=== PATIENT | male | born 1975 | race Caucasian/White ===

== ENCOUNTER 2017-02-17 12:37 | Observation (INO) ==
--- NOTE | 2017-02-17 13:30 | PROVIDER DOCUMENTATION ---
HPI-Neurological Disorder - General Chief Complaint: Syncope Stated Complaint: stroke like sx Time Seen by Provider: 02/17/17 12:42 Source: patient, other (Dr Cassidy) Allergies/Adverse Reactions: Patient Allergies Allergy/AdvReac Type Severity Reaction Status Date / Time No Known Allergies Allergy Verified 02/17/17 14:40 Home Medications: Home Medication List Medication Instructions Recorded Confirmed Last Taken Type ATORVAstatin [Lipitor] 40 mg PO QHS 02/17/17 02/17/17 1 Day Ago History Amlodipine [Norvasc] 10 mg PO DAILY 02/17/17 02/17/17 02/17/17 History Aspirin 325 mg PO DAILY 02/17/17 02/17/17 02/17/17 History Citalopram [Celexa] 40 mg PO DAILY 02/17/17 02/17/17 02/17/17 History Hydrocodone/Acetaminophen 1 tab PO BID PRN 02/17/17 02/17/17 02/17/17 History [Hydrocodon-Acetaminoph 7.5-325] Levothyroxine [Synthroid] 75 microgm PO DAILY 02/17/17 02/17/17 02/17/17 History - History of Present Illness-Neuro Nature of Presenting Problem: 41 yo WM 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 He had left sided symptoms t that time but no aphasia or dysphagia. He recovered enough to return to work. Today he was in [place] [employer] and became totally unrespssive with his eyes "rolled back " in his head but became fully alert when placed flat in bed. He was unmonitored but during the spell but was in a NSR after the spell. He is full alert but reports profound weakness in both legs. CT upon arrival here is without blood but obvious old rt cerebellar infarct near the midbrain. I spoke with of closure of the PFODr John who reports that has a PFO and has been referred to Dr Cassidy for Holter monitoring and consideration Headache Location: reports: temporal Severity: reports: mild Onset/Duration: reports: just prior to arrival Timing: reports: improving (see HPI) Approximate time patient was last seen normal?: 11:00 Character of Altered Mental Status: reports: N/A Any recent trauma/injury?: reports: other (see HPI) Character of Deficits: reports: new weakness New weakness or altered sensation location:: reports: RLE, LUE Gait Baseline: stands for transfers Associated Symptoms: reports: decreased ability to walk or stand - Seizure Witnessed seizure?: No Review of Systems - Adult - REVIEW OF SYSTEMS - ADULT Constitutional: reports: no symptoms reported Eyes: reports: no symptoms reported Ears, Nose, Mouth & Throat: reports: no symptoms reported Cardiovascular: reports: see HPI Respiratory: reports: no symptoms reported Gastrointestinal: reports: no symptoms reported Genitourinary: reports: no symptoms reported Musculoskeletal: reports: no symptoms reported Integumentary: reports: no symptoms reported Neurological: reports: no symptoms reported Psychiatric: reports: no symptoms reported Endocrine: reports: no symptoms reported Hematologic/Lymphatic: reports: no symptoms reported Allergic/Immunologic: reports: no symptoms reported Past History - Adult - PAST MEDICAL HISTORY-ADULT Review of Records: reports: Nursing Assessment Review, Medications Reviewed Major Childhood Illnesses: reports: denies history Cardiovascular: reports: hyperlipidemia Respiratory: reports: denies history Gastrointestinal: reports: denies history Genitourinary: reports: denies history Musculoskeletal: reports: arthritis, other (gout) Hand Dominance: Right Handed Neurological: reports: CVA Psychiatric: reports: denies history Endocrine/Immune: reports: thyroid disorder Physical Exam- Neurological - Physical Exam-Neuro Initial Vital Signs Reviewed: Yes General Appearance: appears well, alert, no apparent distress Eye Exam: bilateral eye: normal inspection, PERRL, EOMI HENMT: normocephalic/atraumatic, moist mucous membranes, normal ENT inspection Head Injury: no evidence of injury Neck: non-tender, full range of motion, supple Respiratory: chest non-tender, lungs clear, normal breath sounds Cardiovascular: regular rate, rhythm, no edema, no gallop, no JVD Abdominal Exam: normal bowel sounds, non tender, soft, no organomegaly, no pulsatile mass Lymphatic: no adenopathy Peripheral Pulses: radial (R): 3+, radial (L): 3+ Extremity: normal inspection, no pedal edema, no calf tenderness, normal capillary refill. negative: normal gait vacuum tester cans Exam: normal hearing, normal speech, PERRL, other (profound lower extremity weakness). negative: abnormal speech, facial asymmetry, facial droop, facial paresthesias Integumentary: normal color, normal turgor, warm/dry Psych/Mental Status: normal mood/affect - Glascow Coma Scale Total Glascow Score: 15 Progress - PLAN OF CARE/RESULTS Progress/Plan/Lab Results: Vital Signs - 8 hr 02/17/17 13:29 02/17/17 15:33 02/17/17 16:29 Temperature 97.6 F 98 F Pulse Rate 81 71 74 Respiratory Rate 19 16 16 Blood Pressure 113/82 140/99 137/98 O2 Sat by Pulse Oximetry 100 100 100 02/17/17 17:28 Temperature Pulse Rate 68 Respiratory Rate 13 Blood Pressure 128/90 O2 Sat by Pulse Oximetry 100 Laboratory Results - last 24 hr 02/17/17 02/17/17 02/17/17 13:47 16:07 16:07 WBC 11.05 H RBC 4.30 L Hgb 13.8 L Hct 40.1 L MCV 93.3 MCH 32.1 H MCHC 34.4 RDW Std Deviation 13.3 Plt Count 302 MPV 9.6 Immature Gran % (Auto) 0.3 Neut % (Auto) 85.5 H Lymph % (Auto) 9.9 L Schley % (Auto) 3.6 Eos % (Auto) 0.5 Baso % (Auto) 0.2 Immature Gran # (Auto) 0.03 Neut # (Auto) 9.45 H Lymph # (Auto) 1.09 L Schley # (Auto) 0.40 Eos # (Auto) 0.06 Baso # (Auto) 0.02 PT INR PTT (Actin FS) Specimen Type VENOUS Sample Site L RADIAL pH 7.43 pCO2 45 HCO3 27.7 H Base Excess 4.8 H ABG O2 Sat (Calculated) 11.9 L ABG Carboxyhemoglobin 2.50 ABG Methemoglobin 1.1 King Test YES A-a O2 Difference 114.0 Total Hemoglobin 13.5 Lactate 2.40 H Liter Flow 2.0 Blood Gas Modality CANNULA FiO2 % 28.0 Sodium Potassium Chloride Carbon Dioxide Anion Gap BUN Creatinine Estimated GFR/1.73 m2 BUN/Creatinine Ratio Glucose Calculated Osmolality Calcium Total Bilirubin AST ALT Alkaline Phosphatase Creatine Kinase Troponin T Total Protein Albumin Globulin Albumin/Globulin Ratio Plasma Lactate Plasma/Serum Ethyl Alc 02/17/17 02/17/17 02/17/17 16:07 16:07 16:07 WBC RBC Hgb Hct MCV MCH MCHC RDW Std Deviation Plt Count MPV Immature Gran % (Auto) Neut % (Auto) Lymph % (Auto) Schley % (Auto) Eos % (Auto) Baso % (Auto) Immature Gran # (Auto) Neut # (Auto) Lymph # (Auto) Schley # (Auto) Eos # (Auto) Baso # (Auto) PT 10.5 INR 1.00 PTT (Actin FS) 26.3 Specimen Type Sample Site pH pCO2 HCO3 Base Excess ABG O2 Sat (Calculated) ABG Carboxyhemoglobin ABG Methemoglobin King Test A-a O2 Difference Total Hemoglobin Lactate Liter Flow Blood Gas Modality FiO2 % Sodium 141 Potassium 4.2 Chloride 100 Carbon Dioxide 28 Anion Gap 13 BUN 8 Creatinine 0.9 Estimated GFR/1.73 m2 > 60 BUN/Creatinine Ratio 9 Glucose 82 Calculated Osmolality 279 Calcium 9.6 Total Bilirubin 0.51 AST 28 ALT 25 Alkaline Phosphatase 65 Creatine Kinase 57 Troponin T Total Protein 7.8 Albumin 4.4 Globulin 3.4 Albumin/Globulin Ratio 1.3 Plasma Lactate 1.4 Plasma/Serum Ethyl Alc 02/17/17 16:07 WBC RBC Hgb Hct MCV MCH MCHC RDW Std Deviation Plt Count MPV Immature Gran % (Auto) Neut % (Auto) Lymph % (Auto) Schley % (Auto) Eos % (Auto) Baso % (Auto) Immature Gran # (Auto) Neut # (Auto) Lymph # (Auto) Schley # (Auto) Eos # (Auto) Baso # (Auto) PT INR PTT (Actin FS) Specimen Type Sample Site pH pCO2 HCO3 Base Excess ABG O2 Sat (Calculated) ABG Carboxyhemoglobin ABG Methemoglobin King Test A-a O2 Difference Total Hemoglobin Lactate Liter Flow Blood Gas Modality FiO2 % Sodium Potassium Chloride Carbon Dioxide Anion Gap BUN Creatinine Estimated GFR/1.73 m2 BUN/Creatinine Ratio Glucose Calculated Osmolality Calcium Total Bilirubin AST ALT Alkaline Phosphatase Creatine Kinase Troponin T < 0.010 Total Protein Albumin Globulin Albumin/Globulin Ratio Plasma Lactate Plasma/Serum Ethyl Alc Orders Category Date Time Status Cardiac Monitoring DIRECTED Care 02/17/17 12:42 Active Finger Stick Blood Sugar (ED) DIRECTED Care 02/17/17 12:42 Active Oxygen Therapy- ED Nursing DIRECTED Care 02/17/17 12:42 Active Saline Loc NOW Care 02/17/17 12:42 Active CHEST-PORTABLE [RAD] Stat Exams 02/17/17 12:42 Completed HEAD W/O CONTRAST [CT] Stat Exams 02/17/17 12:41 Completed ABG [RESP] Routine Lab 02/17/17 13:47 Completed ALCOHOL BLOOD Stat Lab 02/17/17 16:07 Completed CBC WITH ELECTRONIC DIFF [HEME] Stat Lab 02/17/17 16:07 Completed CK PROFILE [SP CHEM] Stat Lab 02/17/17 16:07 Completed COMPREHENSIVE METABOLIC PANEL [CHEM] Stat Lab 02/17/17 16:07 Completed LACTATE, PLASMA [CHEM] Stat Lab 02/17/17 16:07 Completed PROTIME WITH INR [COAG] Stat Lab 02/17/17 16:07 Completed PTT [COAG] Stat Lab 02/17/17 16:07 Completed TROPONIN T Stat Lab 02/17/17 16:07 Completed URINALYSIS W/POSS RFLX CULT-1 [URINALYSIS] Stat Lab 02/17/17 12:42 Uncollected URINE DRUG SCREEN Stat Lab 02/17/17 12:42 Uncollected Pulse Oximetry Stat Oth 02/17/17 12:42 Active EKG [EKG] Stat Ther 02/17/17 12:42 Ordered Result Diagrams: 02/17/17 16:07 02/17/17 16:07 - REASSESSMENT Reassessment #1 Time Reassessed: 17:25 Status: improving Reassessment Comment: Now able to move both legs and wiggle toes but still weak. Discussed with - CT/MRI 1 CT Study: Head Impression: Abnormal CT Results: Old cerebellar stroke - CONSULTS/PCP/HOSPITALIST Notification #1 *Consult/PCP/Hospitalist*: Dr Bailey Time Discussed: 17:20 Reason/Comments: Agrees to admit Departure - Departure Time of Disposition Decision: 17:46 DIAGNOSIS: Syncope Disposition: HOME 01 Certified Medical Emergency: Emergent Condition: Good Referrals and Follow-Ups: None,PCP [Primary Care Provider] - - Critical Care Note This patient required my direct personal management.: Yes Total Time (mins): 30 Critical Care Statement: This patient required my direct personal management to treat or rule out processes, the absence of which, could potentiallly result in sudden, clinically significant life or limb threatening deterioration.
[2017-02-17 13:57] LABS: ALLEN TEST YES; BE 4.8 mmoll (-3.0-3.0); DRAW SITE L RADIAL; METHB 1.1 % (0.0-1.5); O2(CT) 11.9 mL/dL (15.0-23.0); PCO2(98.6) 45 mmHg (35-45); SAMPLE BLOOD; THB 13.5 g/dL (11.5-17.4); pH(98.6) 7.43 (7.35-7.45)
[2017-02-17 13:59] LABS: BLOOD TYPE VENOUS; MODALITY CANNULA
--- NOTE | 2017-02-17 14:10 | Diag Imaging Result Document ---
PROCEDURE NAME: HEAD W/O CONTRAST - 02/17/2017 CT BRAIN WITHOUT: TECHNIQUE: Dose reduction protocol. FINDINGS: No parenchymal hemorrhage. No epidural or subdural hematoma. No subarachnoid hemorrhage. No mass identified on this noncontrasted exam. Hypodense area in the right cerebellum. No other abnormality. No sinus opacification. IMPRESSION: 1. No hemorrhage. 2. Prior right cerebellar infarct. A preliminary report was given at 1:08 p.m. -2
--- NOTE | 2017-02-17 15:06 | Diag Imaging Result Document ---
PROCEDURE NAME: CHEST-PORTABLE - 02/17/2017 PORTABLE CHEST: FINDINGS: The lungs are well expanded. The heart is not enlarged. The vessels are not distended. No pneumonia. No pleural effusions identified. IMPRESSION: Negative chest.
[2017-02-17 16:30] LABS: BASO% 0.2 % (0.0-0.8); EOS# 0.06 X1000 (0.0-0.7); EOS% 0.5 % (0.0-10.0); HEMATOCRIT 40.1 % (42.0-52.0); HEMOGLOBIN 13.8 g/dL (14.0-18.0); IMM GRAN# 0.03 X1000 (0.0-0.04); IMM GRAN% 0.3 % (0.0-0.5); LYMPH# 1.09 X1000 (1.2-3.4); LYMPH% 9.9 % (20.5-51.1); MANUAL DIFF NEEDED? NO; MCH 32.1 PG (27-31); MCHC 34.4 g/dL (33-37); MCV 93.3 FL (81-99); MONO% 3.6 % (1.7-9.3); MPV 9.6 FL (7.4-10.4); NEUT% 85.5 % (42.2-75.2); PLT 302 X1000 (130-400)
[2017-02-17 16:38] LABS: AGAP 13; ALBUMIN 4.4 g/dL (3.5-5.0); ALKALINE PHOSPHATASE 65 U/L (32-122); BUN 8 mg/dL (8-22); CALCIUM 9.6 mg/dL (8.8-10.2); CHLORIDE 100 mmol/L (98-107); CK PROFILE 57 U/L (24-204); COSMO 279; GOT 28 U/L (10-34); GPT 25 U/L (10-44); POTASSIUM 4.2 mmol/L (3.5-5.1); SODIUM 141 mmol/L (136-145); TCO2 28 mmol/L (25-35); TOTAL BILIRUBIN 0.51 mg/dL (0.20-1.00); TOTAL PROTEIN 7.8 g/dL (6.3-8.3)
[2017-02-17 16:52] LABS: PROTIME 10.5 Seconds (9.2-11.7); PTT 26.3 Seconds (22.0-36.0)
[2017-02-17] MEDS ORDERED: ZOFRAN IV PRN (18:57)
[2017-02-17] MEDS: LOVENOX SUBQ SCH (19:00)
--- NOTE | 2017-02-17 19:47 | HISTORY AND PHYSICAL ---
PRESENTING COMPLAINT: Blackout. HISTORY OF PRESENT COMPLAINT: Mr. Jones is a 41-year-old, male who was recently discharged from [facility] about a month ago due to severe cerebellar infarct. The patient on that occasional referred to have blacked out. He did have some slurred speech and had also projectile vomiting and headaches. An MRI confirmed cerebellar infarct and thus a JOHN with bubble study did confirm a PFO. Patient was admitted for 6 days and discharged home with outpatient rehabilitation. The patient referred that he has been doing remarkably fine. He went to see Dr. Niranjan Cassidy today for assessment for a Holter monitor or some form of cardiac monitoring to make sure he does not have underlying arrhythmias. However while in Dr. Cassidy's office he was sitting up on the examination table and he just passed out without any premonition symptoms. When he woke up he was on the bed and apparently somebody was pumping on his chest, unsure if he lost pulse and were giving him CPR. Patient refers that prior to passing out he just felt dazed out and his realized that he was not responding very well, that his speech also got slurred, and then he just passed out. He did not pass out for long maybe about a minute or less. There was no jerking seizure-like activity. Patient presented to the emergency department. At the time he was not able to move his both lower extremities. At the time of his examination he was doing fine. PAST MEDICAL HISTORY: 1. Recent CVA in the cerebellum. 2. Hypertension. FAMILY HISTORY: Positive for diabetes. SOCIAL HISTORY: Patient denies any tobacco use, alcohol or any recreational drugs. Patient is and lives in [place] with the . He owns a business. ALLERGIES: No known drug allergies. PAST SURGICAL HISTORY: None. REVIEW OF SYSTEMS: Fourteen point review of systems conducted with the patient. None except for what we have in the HPI. Specifically patient denies any chest pain or shortness of breath. No headaches. No diarrhea. No abdominal pain. PHYSICAL EXAMINATION: VITAL SIGNS: Blood pressure is 134/94, pulse 78, respirations 12, temperature 98 degrees, patient is saturating 100% on room air. GENERAL EXAMINATION: Mr. Jones is a 41-year-old, male. He is in bed, in no distress. HEENT: Mucosa is pink and moist. Anicteric. Acyanotic. NECK: Supple. No JVD. No carotid bruit. HEAD: Normocephalic and atraumatic. CHEST: Good air entry bilateral. No crepitations. No rhonchi. No accessory muscle use. CARDIOVASCULAR: Regular rate and rhythm. There are no murmurs, no rubs, no gallops. ABDOMEN: Soft, nontender. There are no scars on the abdominal wall. No hepatosplenomegaly. EXTREMITIES: No pedal edema. No cyanosis. Distal pulses are present and they are normal. CENTRAL NERVOUS SYSTEM: Patient is alert. He is alert and oriented x4. Executive functions are completely normal. Cranial nerves 2-12 have been grossly examined and unremarkable. Sensation is intact. Patient has about 4+ of power on the left side. This is consistent with a previous stroke. The right side power is 5/5. I did not appreciate any sensation deficit. The reflexes are 2+. There is no Babinski. LABORATORY DATA: WBC is 11.05, hemoglobin is 13.8, platelet count of 302,000. Chemistries reviewed. Sodium 141, potassium 4.3, chloride is 100, bicarbonate is 28, creatinine is 0.9. Troponins have been normal. ASSESSMENT AND PLAN: Mr. Jones is a 41-year-old, male who recently was diagnosed with a cerebellar stroke, also JOHN confirming PFO, who presented to Dr. Cassidy's office for a cardiac evaluation and had a syncopal episode. 1. Syncope likely related to cardiac event. The patient will need to be on telemetry monitoring while he is in the hospital. If no event is reported, I think he would benefit from prolonged outpatient cardiac monitoring. We will consult Dr. Cassidy to evaluate the patient while he is in the hospital. 2. Suspected transient ischemic attack. The patient did have some slurred speech and I was told some difficulty moving the lower extremities. It would be rare for a stroke to present with both lower extremities. However the patient has documented PFO from [place] and he always has a risk of paradoxical emboli to the brain. We will therefore admit him, observe him neurologically and do an MRI of the brain. 3. Hypertension is controlled for now. We will be liberal with blood pressure numbers. 4. Hypothyroidism. We will start the patient on his home medications. 5. In general, Mr. Jones is relatively fine. We will going to admit him to the medical floor with telemetry monitoring. We will consult Cardiology. We will also start the patient on aspirin statin. Add Plavix as a recommendation from Dr. Lopez, the neurologist it communications manager in [place] who Dr. Little spoke with today. 6. We will give further recommendations during the hospital course. cc: James Bailey MD
[2017-02-17] MEDS: NS 1,000 ML IV SCH (20:21)
[2017-02-17] MEDS: LIPITOR PO SCH (23:10)
[2017-02-17] MEDS: PLAVIX PO SCH (23:10)
[2017-02-18 05:30] LABS: URINE CULTURE NEEDED? NO; URINE MICRO REVIEW NEEDED? NO; URINE SOURCE CLEAN CATCH
[2017-02-18 05:33] LABS: BILIRUBIN URINE NEGATIVE (NEGATIVE); BLOOD URINE NEGATIVE (NEGATIVE); COLOR YELLOW; GLUCOSE URINE NEGATIVE (NEGATIVE); LEUKOCYTES URINE NEGATIVE (NEGATIVE); NITRITE URINE NEGATIVE (NEGATIVE); PH URINE 6.5; PROTEIN URINE NEGATIVE (NEGATIVE); SP GRAVITY URINE 1.012; TURBIDITY URINE CLEAR (CLEAR); UROBILINOGEN URINE NORMAL (NORMAL)
[2017-02-18 05:35] LABS: UR EPITHELIAL CELLS <10 /HPF (<10); URINE BACTERIA NEGATIVE /HPF; URINE RBC <10 /HPF (<10); URINE WBC <10 /HPF (<10)
[2017-02-18 05:47] LABS: UR AMPHETAMINES QUAL NONE DETECTED (NONE DETECT); UR BARBITUATES QUAL NONE DETECTED (NONE DETECT); UR BENZODIAZEPIN QUAL NONE DETECTED (NONE DETECT); UR CANNABINOIDS QUAL PRESUMPTIVE POSITIVE (NONE DETECT); UR COCAINE QUAL NONE DETECTED (NONE DETECT); UR METHADONE QUAL NONE DETECTED (NONE DETECT); UR OPIATES QUAL PRESUMPTIVE POSITIVE (NONE DETECT); UR OXYCODONE QUAL NONE DETECTED (NONE DETECT); UR PCP QUAL NONE DETECTED (NONE DETECT)
[2017-02-18] MEDS: NS 1,000 ML IV SCH ×3 (07:31→21:08)
[2017-02-18] MEDS: PLAVIX PO SCH (08:48)
[2017-02-18] MEDS: CELEXA PO SCH (08:48)
[2017-02-18] MEDS: SYNTHROID PO SCH (08:48)
[2017-02-18] MEDS: ASPIRIN PO SCH (08:48)
[2017-02-18 12:28] LABS: MANUAL DIFF NEEDED? NO
[2017-02-18 12:47] LABS: INR 1.01; PROTIME 10.6 Seconds (9.2-11.7)
[2017-02-18 12:56] LABS: AGAP 15; ALBUMIN 3.9 g/dL (3.5-5.0); ALKALINE PHOSPHATASE 60 U/L (32-122); BUN 9 mg/dL (8-22); CALCIUM 9.1 mg/dL (8.8-10.2); CHLORIDE 100 mmol/L (98-107); COSMO 272; GOT 27 U/L (10-34); GPT 24 U/L (10-44); MAGNESIUM 1.9 mg/dL (1.5-2.7); POTASSIUM 4.2 mmol/L (3.5-5.1); SODIUM 137 mmol/L (136-145); TCO2 22 mmol/L (25-35); TOTAL BILIRUBIN 0.63 mg/dL (0.20-1.00); TOTAL PROTEIN 7.7 g/dL (6.3-8.3)
[2017-02-18 13:04] LABS: BASO% 0.3 % (0.0-0.8); EOS# 0.22 X1000 (0.0-0.7); EOS% 3.5 % (0.0-10.0); HEMATOCRIT 38.8 % (42.0-52.0); HEMOGLOBIN 13.8 g/dL (14.0-18.0); LYMPH# 1.91 X1000 (1.2-3.4); LYMPH% 30.1 % (20.5-51.1); MCH 33.3 PG (27-31); MCHC 35.6 g/dL (33-37); MCV 93.5 FL (81-99); MONO# 0.63 X1000 (0.11-0.59); MONO% 9.9 % (1.7-9.3); NEUT% 56.2 % (42.2-75.2); PLT 295 X1000 (130-400); RBC 4.15 XMIL (4.7-6.1)
[2017-02-18] MEDS: COLCRYS PO SCH ×2 (13:22→20:23)
--- NOTE | 2017-02-18 13:40 | PROGRESS NOTE ---
DATE: 02/18/2017 Today Mr. Jones referred to be doing fine. He does complain of a right elbow pain which goes all the way to the arm but no burning and no sensation deficit. OBJECTIVE: Vital signs: Blood pressure is 116/74, pulse of 52, respirations 18, temperature 98.1 degrees. General: Mr. Jones is a 41-year-old male. He is in bed, in no distress. HEENT: Mucosa is pink and moist. Anicteric. Acyanotic. Neck: Supple. Chest: Clear. Cardiovascular: Regular rate and rhythm. Abdomen: Soft, nontender. Extremities: No pedal edema. INPATIENT CARE MANAGER RN: Patient is alert, oriented x4. There is a mild left side weakness which is from a previous stroke. Patient has no sensation deficit. Musculoskeletal: Right upper extremity is tender on manipulating the elbow joint. There is no effusion, no swelling but I think it is just hurting. ASSESSMENT: 1. Syncope. Etiology is unclear. We think is related to cardiac. 2. Suspected TIA. Patient is pending an MRI and MRA for brain ischemic workup. 3. Hypertension, stable. 4. Hypothyroidism, stable. 5. Left elbow monoarthritis. I think this is related to gout flare. I will put the patient on Colchicine for now and uric acid levels have already been ordered. Will follow up on that. 6. We are pending MRA of the brain and the C-spine. We also are pending the MRI for further stratification of the patient's neurological risks. cc: James Bailey MD
[2017-02-18] MEDS: NORCO-7.5 PO PRN (17:46)
[2017-02-18] MEDS: LOVENOX SUBQ SCH (19:08)
[2017-02-18] MEDS: LIPITOR PO SCH (20:23)
[2017-02-19] MEDS: PROTONIX PO SCH (06:09)
[2017-02-19] MEDS: NORCO-7.5 PO PRN ×2 (08:27→16:56)
[2017-02-19] MEDS: SYNTHROID PO SCH (08:28)
[2017-02-19] MEDS: CELEXA PO SCH (08:28)
[2017-02-19] MEDS: PLAVIX PO SCH (08:28)
[2017-02-19] MEDS: COLCRYS PO SCH ×2 (08:28→22:02)
[2017-02-19] MEDS: ASPIRIN PO SCH (08:28)
[2017-02-19] MEDS: NS 1,000 ML IV SCH (10:18)
--- NOTE | 2017-02-19 12:15 | PROGRESS NOTE ---
DATE: 02/19/2017 CHIEF COMPLAINT: Weakness and pain of right upper extremity, dizziness, syncope. SUBJECTIVE: Mr. Jones felt somewhat dizzy with a vertigo like sensation when getting back from the bathroom. He denies having chest pains. He still has pain in the right arm at the level of the triceps and biceps on the right side when stretching the arm. He definitely has weakness in the right upper extremity. OBJECTIVE: Blood pressure is 114/75, temperature 97.7, pulse 68, respirations 17. He is awake, alert and oriented, in no distress. HEENT is unremarkable. Chest: Clear to auscultation and percussion. Heart sounds regular and rhythmic. No gallop or murmur. Abdomen: Nontender. Extremities: No edema. Neurologic: Moves all 4 extremities. DIAGNOSTIC DATA: Blood work from yesterday showed uric acid of 8.0 which is elevated. C-reactive protein was normal. Pro BNP was normal. Carcinoembryonic antigen was 1.8 which is normal. Sedimentation rate was also minimally elevated at 16. White count is 6340, hemoglobin 13.8. IMPRESSION: 1. The patient has unusual combination of weakness and pain in the right upper extremity preceded by neck pain on the right side a few weeks ago followed by a stroke in the right cerebellar hemisphere. 2. Patent foramen ovale noted by recent transesophageal echocardiogram. 3. Syncopal episode. 4. History of gout. RECOMMENDATIONS: At this point in time, we have requested an MRI of the cervical spine and an MRA of the vertebral and posterior circulation of the brain. Further advice will be forthcoming. He has been started on colchicine for gout. We will see what the studies show. Thank you for the opportunity to participate in his evaluation. cc: Hector Coker MD [facility]
--- NOTE | 2017-02-19 14:11 | PROGRESS NOTE ---
DATE: 02/19/2017 SUBJECTIVE: Today Mr. Jones refers to be doing a whole lot better. The right elbow pain is improving. OBJECTIVE: Vital signs: Blood pressure is 114/75, pulse of 60, respirations 17, temperature is 97.9 degrees. General: Mr. Jones is a 51-year-old male. He is in bed, no seemingly distress. HEENT: Mucosa is pink and moist. Anicteric. Acyanotic. Neck: Supple. Chest: Clear. Cardiovascular: Regular rate and rhythm. There are no murmurs, no rubs, no gallops. Abdomen: Soft, nontender. Extremities: No pedal edema. [employer]: Patient is alert and oriented x4. Musculoskeletal: There is mild tenderness, immobilization of right elbow but it is a whole lot better than yesterday. ASSESSMENT: 1. Syncope, etiology unclear. I think this is more related with some cardiac abnormalities. We are still pending Cardiology evaluation for possible event recorder insertion. 2. Suspected transient ischemic attack. We pending MRI and MRA of the brain and the neck tomorrow. 3. Hypertension, stable. 4. Hypothyroidism. We will continue with the supplement. 5. Right elbow monoarthralgia. I think this is due to gout flare. Uric acid is a little bit high. We started the patient on colchicine. We did not do NSAIDs because is on dual anti- platelet therapy. We do not want to provoke any GI bleed. PLAN: In general, I think Mr. Jones is doing better. Will continue with the current plan. MRI and MRA pending. Once that is done, we will plan the patient's discharge soon. cc: James Bailey MD
[2017-02-19] MEDS: LOVENOX SUBQ SCH (18:16)
[2017-02-19] MEDS: LIPITOR PO SCH (22:02)
[2017-02-20] MEDS: NS 1,000 ML IV SCH ×3 (03:36→20:44)
[2017-02-20] MEDS: PROTONIX PO SCH (06:58)
--- NOTE | 2017-02-20 07:12 | EKG Report ---
Test Performed on : 02/17/2017 2:56:42 PM Test Reason : AMS Blood Pressure : / mmHG Vent. Rate : 074 BPM Atrial Rate : 074 BPM P-R Int : 150 ms QRS Dur : 104 ms QT Int : 400 ms P-R-T Axes : 047 003 025 degrees QTc Int : 444 ms Sinus rhythm. with sinus arrhythmia. with occasional premature ventricular complexes. Otherwise normal ECG No previous ECGs available Unconfirmed Result
--- NOTE | 2017-02-20 07:23 | CONSULTATION ---
DATE OF CONSULTATION: 02/18/2017 CHIEF COMPLAINT: Loss of consciousness, diaphoresis. HISTORY: Sia[age]ytne[age]ld-old male presented to Dr. Niranjan Cassidy's office yesterday at somewhere around 11 o'clock in the morning. The patient went in for a cardiology opinion regarding recent finding of a patent foramen ovale. While he was at the office, the patient developed a sensation of falling to the left side, broke out in a profuse sweat, and lost consciousness for a relatively short period of time. Within a minute or two, he was back to his normal senses. He said that for the ensuing three hours after the loss of consciousness, he could not control his legs. Both of them were very stiff. Then he was brought to the hospital where they did a CT scan of the head and revealed the presence of an old right cerebellar infarct. They did blood work that showed white count of 11,000, hemoglobin 13.8, platelet count 302,000, PT/INR normal. Blood gases showed normal pH of 7.43. PO2 is not reported. PCO2 was 45. Sodium 141, potassium 4.2, BUN 8, creatinine 0.9. Troponin was 0.010. EKG done in the Emergency Room showed sinus rhythm with sinus arrhythmia, PVCs. No ischemic changes. Patient has been admitted to the hospital for observation. Overnight, the patient states that his right arm has become weaker. He cannot fully stretch the right arm. He cannot fully raise it above the head because it hurts. He feels that his right plug sorter is somewhat weaker than the left. He is right- handed. Denies having chest pain. Denies shortness of breath. However, he said that for the past few days prior to coming to the hospital to see Dr. Cassidy, he had noted some increasing exertional dyspnea, and that bothered him somehow. PAST HISTORY: His past history is positive for hypertension. He has history of spinal stenosis. He has hyperlipidemia. He suffered an episode of loss of consciousness associated with projective vomiting and falling also to the left side around 01/18 or 01/19. He was taken to [facility], where they did a CT of the head that showed an acute infarct in the right cerebellum. MRI of the brain 01/21 showed a large territory right posterior internal communicating artery distribution infarction with additional smaller areas of infarction seen along the superior right cerebellar hemisphere and right occipital lobe. Patient states that for about 1 month prior to the event,he was experiencing pain behind right ear, in the neck area.No specific pattern to that. since the CVA ,that pain has not recurred. He was seen by Cardiology, who did a JOHN, and they found a small PFO with some shunting of valve from right to left. However, there is not an obvious gross communication between the right and left sides. His ejection fraction was normal. The patient has history of gout , hypothyroidism. SURGICAL HISTORY: Carpal tunnel syndrome. SOCIAL HISTORY: He is . He has three biological children and three adopted children. 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 He is to his for several years. She is a registered nurse. He is not a smoker, not a drinker. HOME MEDICATIONS: His home medications included hydrocodone/acetaminophen, aspirin 325, atorvastatin 40 mg daily, citalopram 5 mg daily, amlodipine 10 mg daily, levothyroxine 75 mcg daily. FAMILY HISTORY: He said that most male members of his family before the age of 55 from various reasons, usually hypertension, some of them from alcoholic cirrhosis. REVIEW OF SYSTEMS: He has been limited by his spinal stenosis. However, he works intensely about 12 to 15 hours every day. He has been taking physical therapy twice a week for the past few weeks. PHYSICAL EXAMINATION: Vital signs: Blood pressure is 116/74, temperature 98.1 , pulse 52, respirations 18. He is awake, alert, oriented, in no distress. HEENT: Unremarkable. Chest: Chest is clear to auscultation and percussion. Cardiac: Heart sounds are regular and rhythmic. Abdomen: Nontender, soft. No masses. No hepatomegaly. Extremities: Extremities show good pulses. Neurological exam: He has definite weakness of the hand plug sorter on the right side. He cannot raise his arm fully above the chin level with the right arm without hurting. He cannot fully stretch his right arm because it hurts. Cranial nerves appear to be normal. His speech is clear. The patient appears to be older than his stated age. IMPRESSION: 1. Patient who has developed a stroke about a month ago or so. Now he presents after having an episode of intense vertigo, falling to the left side, and having loss of consciousness associated with profuse diaphoresis. He had a transient neurological deficit afterwards, which he describes as stiffness of the legs, and now he is having localizing signs in the right arm with weakness and pain to motion, which is not related to gout. 2. History of gout. 3. History of hypertension. RECOMMENDATIONS: At this point in time, I would suggest to obtain an MRI of the cervical spine and possibly an MRA of the posterior cerebral circulation to evaluate for any compression of the vertebral artery on the right side or the spinal cord and brachial plexus on the right side. I discussed case with ,radiologist, trying to decide which imaging modality may be best to find out what is the nature of his problem. Further intervention will depend on the findings. Thank you again for the opportunity to participate in his evaluation. Cardiac knott, at this point in time, I am not going to order any specific therapy or treatment. We will check a uric acid level as well as inflammatory markers. cc: Hector Coker MD MTDD
[2017-02-20] MEDS: PLAVIX PO SCH (08:32)
[2017-02-20] MEDS: ASPIRIN PO SCH (08:32)
[2017-02-20] MEDS: COLCRYS PO SCH ×2 (08:32→20:44)
[2017-02-20] MEDS: CELEXA PO SCH (08:32)
[2017-02-20] MEDS: SYNTHROID PO SCH (08:32)
--- NOTE | 2017-02-20 08:40 | EKG Report ---
Test Performed on : 02/18/2017 06:28:09 AM Test Reason : chest pain Blood Pressure : / mmHG Vent. Rate : 070 BPM Atrial Rate : 070 BPM P-R Int : 150 ms QRS Dur : 096 ms QT Int : 400 ms P-R-T Axes : 048 013 035 degrees QTc Int : 432 ms Sinus rhythm. with occasional premature ventricular complexes. Otherwise normal ECG When compared with ECG of 17-FEB-2017 14:56, (Unconfirmed) No significant change was found Confirmed by Greta CARRION, Tomas Carrero ([id number]) on 02/21/2017 12:36:11 PM
[2017-02-20] MEDS: NORCO-7.5 PO PRN ×2 (09:56→16:59)
--- NOTE | 2017-02-20 14:06 | Diag Imaging Result Document ---
PROCEDURE NAME: MRA BRAIN W/CONTRAST - 02/18/2017 MRA BRAIN: COMPARISON: None available. FINDINGS: There is no evidence of flow-limiting stenosis, vascular malformation, or cerebral aneurysm involving the arteries comprising the [place] of [place], including the anterior, middle, and posterior circulations. The distal basilar arteries and distal ICAs are unremarkable as well. IMPRESSION: No evidence of cerebral artery flow limiting stenosis.
--- NOTE | 2017-02-20 14:33 | Diag Imaging Result Document ---
PROCEDURE NAME: MRI C SPINE W/WO CONTRAST - 02/18/2017 COMPARISON: None available. FINDINGS: The osseous marrow signal is unremarkable. The cervical spinal cord signal is normal. There appears to be mild focal encephalomalacia involving the right cerebellar hemisphere. Surrounding soft tissues are essentially unremarkable. Segmental analysis of the cervical spine is detailed below. C1-2: Unremarkable. C2-3: Unremarkable. C3-4: There is a broad-based disk osteophyte complex with a more prominent right lateralizing component. This is causing moderate right foraminal stenosis. There is very mild left foraminal narrowing. There is effacement of the left side of the thecal sac with near contact with the ventral surface of the spinal cord. However, there is no significant mass effect on the cord. C4-5: There is a broad-based disk osteophyte complex with a more prominent left lateralizing component. This is causing mild left foraminal stenosis and effacement of the ventral thecal sac on the left. There is no evidence of cord compression. C5-6: There is a broad-based disk osteophyte complex with a more prominent right lateralizing component. This is causing fairly severe right foraminal stenosis. There is mild narrowing of the left neural foramen. There is mild effacement of the ventral thecal sac but there is no evidence of cord compression. C6-7: There is a broad-based disk osteophyte complex that is causing mild to moderate central stenosis. There is no evidence of cord compression, however. There is mild left foraminal stenosis. The right neural foramen appears to be patent. C7-T1: Unremarkable. IMPRESSION: Degenerative disk disease as detailed level by level above involving the levels from C3-4 through C6-7.
--- NOTE | 2017-02-20 14:42 | Diag Imaging Result Document ---
PROCEDURE NAME: MRA C-SPINE W/CONTRAST - 02/20/2017 COMPARISON: None available. FINDINGS: There is no evidence of flow-limiting stenosis, aneurysm, dissection, or vascular malformation involving the common carotid arteries, external carotid arteries, or internal carotid arteries, bilaterally. The vertebral arteries are codominant. There is no evidence of aneurysm, flow limiting stenosis, vascular malformation, or dissection involving the vertebral arteries. IMPRESSION: Unremarkable MRA neck.
--- NOTE | 2017-02-20 16:25 | PROGRESS NOTE ---
DATE: 02/20/2017 SUBJECTIVE: Today, Mr. Jones refers to be doing fine. The right elbow feels a little better. OBJECTIVE: Vital signs: Blood pressure is 122/85, pulse 63, respirations 18, temperature 97.4 degrees. General: Mr. Jones is a 41-year-old male. He is in bed , in no distress. HEENT: Mucosa is pink and moist. Anicteric. Acyanotic. Neck: Supple. Chest : Clear. Cardiovascular: Regular rate and rhythm. Abdomen: Soft. Extremities: No pedal edema. 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 Mild weakness on the left side and there is some tenderness to palpation to the right elbow and the left ankle. LABORATORY DATA: None for today. IMAGING STUDIES: An MRI of the cervical spine shows degenerative disk disease involving levels from C3-4 through C7-8 but no significant evidence of cord compression. A brain MRA no evidence of cerebral artery flow limiting stenosis. Cervical spine MRI and MRA unremarkable (MRA of the neck). ASSESSMENT: 1. Syncope. Etiology is still unclear. I think this is either cardiac related or possible carotid hypersensitivity. Cardiology is on board. 2. Suspected transient ischemic attack. So far, MRAs have been negative. We still pending the MRI. 3. Hypertension controlled. 4. Hypothyroidism stable. 5. Right elbow arthralgia likely due to gout. Patient is currently on colchicine. This seems to be improving. We will be pending Cardiology for their recommendation as to what they recommend going forward in terms of his post-stroke cardiac workup. cc: James Bailey MD MTDD
[2017-02-20] MEDS: LIPITOR PO SCH (20:44)
[2017-02-21] MEDS ORDERED: ATIVAN PO SCH (00:30)
[2017-02-21] MEDS: LOVENOX SUBQ SCH (00:40)
[2017-02-21] MEDS: PROTONIX PO SCH ×2 (05:35→07:16)
[2017-02-21] MEDS: NS 1,000 ML IV SCH (05:35)
[2017-02-21] MEDS: CELEXA PO SCH (08:36)
[2017-02-21] MEDS: ASPIRIN PO SCH (08:36)
[2017-02-21] MEDS: COLCRYS PO SCH (08:36)
[2017-02-21] MEDS: PLAVIX PO SCH (08:36)
[2017-02-21] MEDS: SYNTHROID PO SCH (08:36)
[2017-02-21 09:53] VITALS: BP 124/93
[2017-02-21] MEDS: NORCO-7.5 PO PRN (10:10)
--- NOTE | 2017-02-21 10:26 | Diag Imaging Result Document ---
PROCEDURE NAME: MRI BRAIN W W/O CONTRAST - 02/20/2017 MRI BRAIN WITHOUT AND WITH CONTRAST: TECHNIQUE: Images are obtained prior to and following Omniscan administration. No comparison MRI brain is available. Exam is correlated with the 02/17/2017 CT head. FINDINGS: There is abnormal signal at the medial and posterior inferior right cerebellar hemisphere. This is compatible with encephalomalacia and gliosis from old infarct. There are no other substantial signal abnormalities identified. The diffusion-weighted images show no areas of restricted diffusion (no evidence of acute infarct). There is no evidence of hemorrhage, mass effect, midline shift, or hydrocephalus. There is no abnormal enhancement identified. IMPRESSION: Old infarct at the inferior right cerebellum. No visible acute process. No indication of recent infarct. [facility]
--- NOTE | 2017-02-21 17:43 | DISCHARGE SUMMARY ---
ADMISSION DATE: 02/17/2017 DISCHARGE DATE: 02/21/2017 CONSULTATIONS: Hector Coker MD with Cardiology. PERTINENT PROCEDURES: 1. Head CT showed no hemorrhage, prior right cerebellar infarct. 2. Cervical spine MRI: Degenerative disc disease is detailed level by level involving the levels C3-4 through C6-7, C1-2 unremarkable, C2-3 unremarkable. C3-4 with a broad- based disc osteophyte complex with a more prominent right lateralization component causing moderate right foraminal stenosis, very mild left foraminal narrowing, effacement of the left side of the thecal sac with near contact of the ventral surface of the spinal cord, however, no significant mass effect on the cord. C4-5 broad disc osteophyte complex with more prominent left lateralizing component, mild left foraminal stenosis and effacement of the ventral thecal sac on the left, no evidence of cord compression. C5-6 broad-based disc osteophyte complex with prominent right lateralizing component causing fairly severe right foraminal stenosis, mild narrowing on the left neural foramen, mild effacement of the ventral thecal sac but no evidence of cord compression. C6-7 broad-based disc osteophyte complex that is causing mild- to-moderate central stenosis. No evidence of cord compression, however, there is mild left foraminal stenosis. The right neural foramen appears to be patent. 3. Brain MRI: No evidence of cerebral artery flow limiting stenosis. 4. Cervical spine MRI with MRA unremarkable. 5. Brain MRI: Old infarct at the inferior right cerebellum, no visible acute process, no indication of recent infarct. DISCHARGE DIAGNOSES: 1. Syncope, etiology is still unclear. Followed by Cardiology. Patient had a patent foramen ovale noted by transesophageal echocardiography. 2. Suspected transient ischemic attack. All workup has been negative. 3. Hypertension controlled. 4. Hypothyroidism stable. 5. Right elbow arthralgia secondary to gout. Patient currently on colchicine, improving. HOSPITAL COURSE: Mr. Jones is a 41-year-old, male, recently discharged from [facility] about a month ago due to severe cerebral infarct. Patient on medication referred to have blacked out. He had slurred speech and also projectile vomiting and headaches. An MRI confirmed cerebellar infarct and thus a JOHN with a bubble study did confirm a PFO. The patient was admitted for 6 days and discharged home with outpatient rehabilitation. The patient referred that he had been remarkably fine. He went to see Dr. Cassidy for assessment for a Holter monitor for some cardiac monitoring for any underlying arrhythmias. However, while in Dr. Cassidy's office he was sitting up on the examination table and passed out without any premonition symptoms. When he woke up, he was on a bed and apparently somebody was pumping on his chest. He is not sure if he lost his pulse and CPR was given. The patient refers that prior to passing out he just felt dazed and his realized that he was not responding very well and that his speech also got slurred, and that he just passed out. There was no jerking seizure- like activity. The patient presented to the ED. At that time he was not able to move both lower extremities. He did undergo a head CT that showed an old infarct as well as a cervical spine MRI. The patient was admitted with a Cardiology consultation who felt like his syncope was related to a cardiac event. He was monitored on telemetry, also a suspected TIA. The patient had some slurred speech as well as difficulty moving his lower extremities. Dr. Little in the ED spoke with Dr. Dimas, the neurologist senior radiation therapist in [place], who recommended to continue with aspirin, statin and Plavix. He was also noted to have some right elbow arthralgia. He was started on colchicine. MRIs and MRAs have remained negative. Hypertension has been controlled. The patient will continue to follow closely with Cardiology as well as his neurologist. The patient is appropriate for discharge home today. VITAL SIGNS ON DISCHARGE: Temperature is 97.8 degrees, heart rate 76 respirations 20, blood pressure 124/93, O2 saturation is 100% on room air. DISCHARGE DIET: Healthy heart. DISCHARGE MEDICATIONS: 1. Norvasc 10 mg p.o. daily. 2. Aspirin 325 p.o. daily. 3. Lipitor 40 mg p.o. at bedtime. 4. Lasix 40 mg p.o. daily. 5. Plavix 75 mg p.o. daily. 6. Colcrys 0.6 mg p.o. b.i.d. 7. Bullhead 7.5/325, 1 each p.o. b.i.d. p.r.n. 8. Synthroid 75 mcg p.o. daily. FOLLOWUP: 1. Patient is being discharged home with his . He will need to follow up with Dr. Coker as instructed as well as his primary neurologist. Patient will also need to obtain a primary care physician and follow up with him in 7-10 days. Patient also has appointment to follow with a neurologist in [place] [id number]. Patient can return to the ED for any worsening of symptoms Dictated by SAWYER De Leon for James Bailey MD cc: James Bailey MD [facility]
== END 2017-02-21 12:17 | disposition home or self-care (01) ==
LOC: ED 12:37 → INTOOBSV 20:17 → 3N 20:17
PROVIDERS: ATTEND Internal Medicine